=== PATIENT | female | born 1945 | race Caucasian/White ===

== ENCOUNTER 2016-07-26 17:48 | Emergency (ER) | payer MEDICARE, MEDICAID ==
[2016-07-26 18:16] LABS: BASOPHILS 0.1 % (0.0-2.0); EOSINOPHILS 0.2 % (0-7); HEMATOCRIT 35.7 % (36.0-48.0); HEMOGLOBIN 11.6 g/dL (12-16); IMMATURE GRANULOCYTES 0.2 % (0-5); LYMPHOCYTES 12.6 % (15-50); MCH 29.1 pg (26.0-34.0); MCHC 32.5 g/dL (31.0-37.0); MCV 89.7 fL (80.0-100.0); MONOCYTES 7.3 % (2-11); NEUTROPHILS 79.6 % (40-80); PLATELET COUNT 177 10x3/uL (130-400); RBC 3.98 10x6/uL (4.00-5.40); RDW 12.7 % (11.5-14.5); WBC 8.9 10x3/uL (4.8-10.8)
[2016-07-26 18:39] LABS: ALBUMIN 3.8 g/dL (3.4-5.0); ALKALINE PHOSPHATASE 83 U/L (46-116); ALT (SGPT) 19 U/L (10-68); BILIRUBIN - TOTAL 0.38 mg/dL (0.2-1.3); CALC OSMOLALITY 279 mosm/kg (275-300); CARBON DIOXIDE 32.1 mmol/L (21.0-32.0); CHLORIDE - SERUM 101 mmol/L (98-107); CREATININE - SERUM 0.9 mg/dL (0.6-1.3); GLUCOSE 108 mg/dL (74-106); PROTEIN - SERUM 7.4 g/dL (6.4-8.2); SODIUM 139 mmol/L (136-145); UREA NITROGEN 16 mg/dL (7-18); eGFR NON AFRICAN AMERICAN 65 mL/min (90-120)
[2016-07-26 18:59] LABS: CKMB 0.5 U/L (0.0-3.6); CREATINE KINASE 58 UL (21-215); TROPONIN-I < 0.017 ng/mL (0.000-0.060)
== END 2016-07-26 19:44 | disposition home or self-care (01) ==
LOC: D.ER 17:48
PROVIDERS: Family Medicine
DX: R07.81 Pleurodynia (principal); R05 Cough; I10 Essential (primary) hypertension

== ENCOUNTER 2018-12-20 07:41 | Inpatient (IN) | payer MEDICARE ==
[~2018-12-20] VITALS: Ht 165.1 cm; Wt 57.2 kg
[2018-12-23] MEDS ORDERED: HYDROCODON-ACE1 EAC7 PO (16:21)
[2018-12-23] MEDS ORDERED: COZAAR25 MG PO (16:21)
[2018-12-23] MEDS ORDERED: NEXIUM40 MG PO (16:22)
[2018-12-23] MEDS ORDERED: CELEXA40 MG PO (16:23)
[2018-12-23] MEDS ORDERED: XANAX0.5 MG PO (16:23)
[2018-12-23] MEDS ORDERED: VITAMIN D2000 UNIT PO (16:24)
[2018-12-23] MEDS ORDERED: DEPAKOTE500 MG PO (16:24)
[2018-12-23] MEDS ORDERED: BAYER CHEWABLE81 MG PO (16:24)
[2018-12-23] MEDS ORDERED: TRAZODONE HCL150 MG PO (16:25)
[2018-12-24] VITALS (11 sets, daily range): BP systolic 114–138; BP diastolic 59–73; BMI 20.8; BMI 21.0
[2018-12-24 07:49] LABS: APTT 28.9 SECONDS (22.8-39.4); INR 1.06 (0.85-1.17); PROTIME 13.3 SECONDS (11.6-15.0)
[2018-12-24 08:29] LABS: BASOPHILS 0.6 % (0-2); EOSINOPHILS 3.6 % (0-7); HEMATOCRIT 39.7 % (36.0-48.0); HEMOGLOBIN 13.2 g/dL (12-16); LYMPHOCYTES 37.5 % (15-50); MCH 28.9 pg (26.0-34.0); MCHC 33.2 g/dL (31.0-37.0); MCV 86.9 fL (80.0-100.0); MEAN PLATELET VOLUME 10.7 fL (7.4-10.4); MONOCYTES 13.8 % (2-11); NEUTROPHILS 44.5 % (40-80); PLATELET COUNT 182 10x3/uL (130-400); RBC 4.57 10x6/uL (4.00-5.40); WBC 3.6 10x3/uL (4.8-10.8)
--- NOTE | 2018-12-24 13:22 | NUR ---
EPIDURAL DROPPED FROM 8 TO RATE IF 6 @1320
--- NOTE | 2018-12-24 18:45 | NUR ---
PATIENT IN BED WITH IV INTACT. EPIDURAL INTACT ALSO. NEURO CHECKS WITHIN NORMAL LIMITS. VS STABLE. PATIENT STATES NO PAIN. FAMILY AT BEDSIDE. CALL LIGHT WITHIN REACH. BSCD ON AND WORKING.
--- NOTE | 2018-12-24 19:00 | NUR ---
ASSESSMENT PER FLOW SHEET. PT IS WITHOUT DISTRESS. PAIN CONTROLLED WITH EPIDURAL. LAP SITES X3 CLEAN AND DRY. LAP XI RMQ OF ABD WITH MINIMAL BLOODY DRAINAGE. SATS 95-96% VIA CONT PULSE OX.FALL PREVENTION INITIATED WITH MIKE MAT. HOB 20 DEGREES
[2018-12-25 03:48] VITALS: BP 116/74
--- NOTE | 2018-12-25 06:05 | NUR ---
HAS SLEPT SOME TONIGHT. COMPLAINS OF MINIMAL PAIN. PT IS WITHOUT CHANGE FROM INITIAL SHIFT ASSESSMENT. CONT PLAN OF CARE
[2018-12-25 06:49] VITALS: BP 108/62
[2018-12-25 07:19] LABS: BASOPHILS 0.2 % (0-2); EOSINOPHILS 0 % (0-7); HEMATOCRIT 32.3 % (36.0-48.0); HEMOGLOBIN 10.6 g/dL (12-16); IMMATURE GRANULOCYTES 0.2 % (0-5); LYMPHOCYTES 22.4 % (15-50); MCH 28.6 pg (26.0-34.0); MCHC 32.8 g/dL (31.0-37.0); MCV 87.3 fL (80.0-100.0); MEAN PLATELET VOLUME 10.5 fL (7.4-10.4); NEUTROPHILS 68.2 % (40-80); PLATELET COUNT 150 10x3/uL (130-400); RDW 14.2 % (11.5-14.5)
[2018-12-25 07:21] LABS: WBC 4.7 10x3/uL (4.8-10.8)
--- NOTE | 2018-12-25 07:33 | NUR ---
PT RESTING IN BED. PULSE OX 97%. DENIES PAIN. NO S/S OF ACUTE DISTRESS. CL IN PLACE.
[2018-12-25 07:43] LABS: ALBUMIN 2.6 g/dL (3.4-5.0); ANION GAP 11.1 mmol/L (8-16); BILIRUBIN - TOTAL 0.45 mg/dL (0.2-1.3); CALCIUM 8.3 mg/dL (8.5-10.1); CARBON DIOXIDE 27.6 mmol/L (21.0-32.0); CREATININE - SERUM 0.8 mg/dL (0.6-1.3); MAGNESIUM - SERUM 1.7 mg/dL (1.8-2.4); PHOSPHOROUS 3.2 mg/dL (2.5-4.9); POTASSIUM - SERUM 3.7 mmol/L (3.5-5.1); PROTEIN - SERUM 5.6 g/dL (6.4-8.2)
[2018-12-25 10:17] VITALS: BP 110/63
[2018-12-25 13:11] VITALS: BP 113/61
[2018-12-25 13:29] VITALS: BMI 20.9
--- NOTE | 2018-12-25 14:53 | NUR ---
WOUND CARE CONSULT: S/P RIGHT COLECTOMY 12/24/18. LAP SITES NOTED NO WOUND ISSUES
--- NOTE | 2018-12-25 15:20 | OP ---
PATIENT NAME: YENI CANALES MEDICAL RECORD: [id number] :45 LOCATION:D.MS [id number] ADMISSION DATE:12/24/18 SURGEON: PAU PALENCIA MD DATE OF OPERATION: 12/24/2018 PREOPERATIVE DIAGNOSIS: Cecal cancer. POSTOPERATIVE DIAGNOSIS: Cecal cancer. PROCEDURE: Hand-assisted laparoscopic surgery -- right hemicolectomy. SURGEON: Pau Palencia MD QUEBRACHO TANNER: None. BLOOD LOSS: 100 cc. DRAINS: None. The risks, possible complications and alternatives to the procedure were explained to the patient. She elects to proceed. The discussion specifically included, but was not limited to, bleeding requiring an emergency reoperation, infection, intestinal injury, ureteral injury. DESCRIPTION OF PROCEDURE: An epidural catheter was inserted by the anesthesia staff. The patient was then conveyed to the operating room. General anesthesia was induced by the anesthesia staff. The abdomen was sterilely prepped and draped. A small skin shelia was accomplished in the left upper quadrant. Veress needle was inserted through the skin shelia into the peritoneal cavity. CO2 insufflation was begun. Once a sufficient pneumoperitoneum had been achieved, a 5-mm trocar was inserted. Under direct internal vision utilizing a television camera, I inspected the abdomen. I identified no adhesions. A 5-mm trocar was inserted through an incision in the umbilicus. A 5-mm trocar was inserted through an incision in the suprapubic area. During insertion of the Veress needle and all trocars, there appeared to have been no injury to the bowels, any intraperitoneal or retroperitoneal structures. Utilizing the laparoscopic EnSeal device, I grasped the right colon, moved it medially and took down the white line of Toldt. I then folded the colon medially. I took down the retroperitoneal attachments to the hepatic flexure. I then chose a point for my hand port, which was assisted between the right costal margin and the anterior superior iliac spine. A transverse incision was accomplished here. Sharp dissection was carried out through the skin and subcutaneous tissues. I incised the external oblique muscle along the direction of its fibers and spread the muscle. I then spread the internal oblique and transverse abdominis muscles. I entered the peritoneal cavity sharply. An Cole retractor was placed. The Gelport was attached to the Cole retractor. Through the Gelport, I did some additional hand manipulation and mobilization of the right colon while sweeping down the inferior vena cava and the duodenum, which were retracted and undamaged during the operation. I removed the Gelport top. I then pushed down the ureter with a sponge stick. I was able to then exteriorize the right colon and hepatic flexure. I chose the proximal extent of my resection to be just upstream from the fold of Treves. A window was created in the mesentery of the small bowel. I stapled across the ileum with a MICHAEL 75 stapler. I chose the distal extent of my resection to be just proximal to the OPERATIVE REPORT [id number] YENI CANALES middle colic artery. I stapled across the large bowel here with a MICHAEL-75 stapler. The interpose mesentery was taken down with the Super Jaw EnSeal device. I then opened the specimen on the back table and I identified the malignancy within the cecum. I changed gowns and gloves. I then came back to the operative field and placed the ileum and transverse colon into apposition side by side with the antimesenteric borders sutured together with 3-0 Vicryl sutures. A small enterotomy and small colotomy were accomplished. Anvils of the MICHAEL-75 stapler were advanced. I then fired. The resulting enterocolonic defect was then closed with a single firing of the TA-60 stapler. The mesenteric rent was closed with a running #1 Vicryl. I then returned the anastomosis to the peritoneal cavity after checking and the anastomosis was patent to 3 fingers. I noted no damage to the small bowel. The small bowel was not twisted on its mesentery. I irrigated in the right upper quadrant and aspirated. There was no bleeding at low pressure of 8. The peritoneum, transverse abdominis muscle, and internal oblique muscle were all closed with a running #1 Vicryl. The external oblique muscle was closed with a running #1 Vicryl. The adipose tissue was closed with 3-0 Vicryl sutures. Subcutaneous tissues were closed with interrupted 3-0 Vicryls. The skin was closed with a running intracuticular 4-0 Vicryl. At the trocar sites, the umbilicus was closed with interrupted 4-0 Vicryl Rapide sutures. The other 2 trocar sites were closed with interrupted intracuticular 3-0 Vicryls. Benzoin and Steri-Strips were applied. The patient was then extubated and conveyed to the post-anesthesia care unit where she was in stable condition. TRANSINT:[id number] Voice Confirmation ID: [id number] DOCUMENT ID: [id number] PAU PALENCIA MD at 1520 CC: [id number] DICTATION DATE: 12/25/18 1214 HOCKEY SCOUT: 12/25/18 1332 ADM IN [facility] [id number] [place] [address]
[2018-12-25 16:24] VITALS: BP 115/68
--- NOTE | 2018-12-25 18:42 | NUR ---
PT RESTING IN BED. NO S/S OF ACUTE DISTRESS. SON AT BEDSIDE. CL IN PLACE.
--- NOTE | 2018-12-25 19:00 | NUR ---
ASSESSMENT PER FLOW SHEET. PT IS WITHOUT DISTRESS. PAIN CONTROLLED WITH EPIDURAL.SATS 100% ON 2 LITERS PER NASAL CANULA.FALL PREVENTION IN PLACE.CALL LIGHT IN REACH
[2018-12-25 21:49] VITALS: BP 119/69
--- NOTE | 2018-12-25 23:16 | NUR ---
PT TEMP GOT UP TO 101.0.INCENTIVE SPIROMETRY TO BEDSIDE WITH INSTRUCTION. RETURNED DEMONSTRATION WITH GOOD EFFORT.URINE TO LAB ORDERED FOR UA.MONITOR FOR NEEDS. TEMP NOW 100.6. MONITOR
[2018-12-25 23:26] LABS: APPEARANCE CLEAR (CLEAR); BILIRUBIN NEGATIVE (NEGATIVE); COLOR YELLOW (YELLOW); GLUCOSE NEGATIVE (NEGATIVE); KETONE SMALL mg/dL (NEGATIVE); NITRITE NEGATIVE (NEGATIVE); PROTEIN NEGATIVE (NEGATIVE); SPECIFIC GRAVITY 1.015 (1.005-1.020); UROBILINOGEN NORMAL (NORMAL)
[2018-12-25 23:27] LABS: BACTERIA NONE SEEN /hpf (NONE SEEN); EPITHELIAL CELLS 0-5 /hpf (0-5); WHITE CELLS - URINE 0-5 /hpf (0-5)
--- NOTE | 2018-12-26 00:55 | NUR ---
AWAKENS INT. FAMILY AT BEDSIDE. MONITOR FOR NEEDS
--- NOTE | 2018-12-26 02:48 | NUR ---
AWAKE MOST OF NIGHT. PT IS WITHOUT PAIN,BUT AWAKENS VERY EASILY. MONITOR FOR NEEDS
[2018-12-26 02:49] VITALS: BP 118/64
[2018-12-26 04:46] LABS: BASOPHILS 0.3 % (0-2); EOSINOPHILS 0.8 % (0-7); HEMATOCRIT 32.3 % (36.0-48.0); HEMOGLOBIN 10.5 g/dL (12-16); IMMATURE GRANULOCYTES 0.1 % (0-5); LYMPHOCYTES 14.3 % (15-50); MCH 28.6 pg (26.0-34.0); MCHC 32.5 g/dL (31.0-37.0); MEAN PLATELET VOLUME 10.2 fL (7.4-10.4); MONOCYTES 8.6 % (2-11); NEUTROPHILS 75.9 % (40-80); PLATELET COUNT 144 10x3/uL (130-400); RBC 3.67 10x6/uL (4.00-5.40)
[2018-12-26 04:58] LABS: WBC 7.2 10x3/uL (4.8-10.8)
[2018-12-26 05:05] LABS: ANION GAP 11.9 mmol/L (8-16); CALCIUM 8.4 mg/dL (8.5-10.1); CARBON DIOXIDE 26.3 mmol/L (21.0-32.0); CREATININE - SERUM 0.8 mg/dL (0.6-1.3); MAGNESIUM - SERUM 1.6 mg/dL (1.8-2.4); POTASSIUM - SERUM 4.2 mmol/L (3.5-5.1)
[2018-12-26 06:29] VITALS: BP 114/63
--- NOTE | 2018-12-26 06:35 | NUR ---
PT IS WITHOUT DISTRESS,WITHOUT CHANGE FROM INITIAL SHIFT ASSESSMENT.CONT PLAN OF CARE
--- NOTE | 2018-12-26 07:54 | NUR ---
PT RESTING IN BED. ASSITED ON BEDPAN. PASSED GAS NO BM. NO S/S OF ACUTE DISTRESS. CL IN PLACE.
--- NOTE | 2018-12-26 09:56 | NUR ---
CALLED [facility] TO SEE IF PT COULD TAKE PO MEDS. "OK TO TAKE PO MEDS. CALL ANESTHESIA TO DC EPIDURAL." NO S/S OF ACUTE DISTRESS. CL IN PLACE.
[2018-12-26 10:26] VITALS: BP 114/69
--- NOTE | 2018-12-26 12:02 | MORECARE ---
CASE MANAGEMENT DISCHARGE SUMMARY PATIENT: YENI CANALES UNIT: [id number] ADM DATE: 12/24/18 AGE: 73 : 45 SEX: F ROOM/BED: D.2218 AUTHOR: MARISA ORNELAS PHYSICIAN: REFERRING PHYSICIAN: PAU PALENCIA MD DATE OF SERVICE: 12/26/18 Discharge Plan Patient Name: YENI CANALES Facility: [facility]:[place] : 1945 Planned Disposition: Home Anticipated Discharge Date: Discharge Date: Expected LOS: Initial Reviewer: [email or web address] Initial Review Date: 12/24/2018 Generated: 12/26/18 1:02 pm Comments DCP- Discharge Planning Updated by [email or web address]: Una Ashley on 12/26/18 10:[address] Patient Name: YENI CANALES Admission Status: Elective Accout number: [id number] Admission Date: 12-24-2018 : 1945 Admission Diagnosis: Attending: PAU PALENCIA Current LOS: 2 Anticipated DC Date: Planned Disposition: Home Primary Insurance: MEDICARE A & B Discharge Planning Comments: CM met with patient to complete initial dc planning assessment. CM educated patient on the CM role and verbal consent given by patient to complete assessment. Patient lives at home with her adult son where she is independent with her care. At discharge patient plans to return home and feels this is a safe discharge. She has a great family support. 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 CM discussed availability of home health, rehab services, and medical equipment. Patient denied known discharge needs at this time. CM will continue to follow and will assist as needed with dc plans/needs. Knuckle Strap Sewer: Una Ashley DCPIA - Discharge Planning Initial Assessment Updated by [email or web address]: Una Ashley on 12/26/18 11:56 am * Is the patient Alert and Oriented? Yes * How many steps to enter\exit or inside your home? * PCP GERALDINE * Pharmacy [facility] * Preadmission Environment Home with Family * ADLs Independent * Equipment None * List name and contact numbers for known caregivers / representatives who currently or will assist patient after discharge: ANEESH [phone] [facility] [phone] * Verbal permission to speak to the caregivers and representatives has been obtained from the patient. Yes * Community resources currently utilized None * Additional services required to return to the preadmission environment? No * Can the patient safely return to the preadmission environment? Yes * Has this patient been hospitalized within the prior 30 days at any hospital? No Patient Name: YENI CANALES Page 37837 at 1202 All edits/amendments must be made on the electronic document DICTATION DATE: 12/26/18 1202 CRIBBER: MARCUS 12/26/18 1202 RPT#: [id number] DC DATE: STATUS: ADM IN [facility] [address] [place] [address] END OF REPORT
[2018-12-26 12:43] VITALS: BP 103/57
[2018-12-26 18:35] VITALS: BP 119/64
--- NOTE | 2018-12-26 18:45 | NUR ---
PT RESTING IN BED. PAIN 5/10. NO S/S OF ACUTE DISTRESS. CL IN PLACE.
--- NOTE | 2018-12-26 19:00 | NUR ---
BEDSIDE REPORT RECEIVED AND CARE OF PT ASSUMED. PT LYING IN LOW STUART'S POSITION WITH EYES CLOSED. IV TO RIGHT HAND PATENT WITH NS INFUSING AT 100 ML/HR. CORONA CATHETER DRAINING TO GRAVITY WITH YELLOW URINE IN COLLECTION BAG. WILL MONITOR FOR NEEDS.
--- NOTE | 2018-12-26 19:37 | NUR ---
PT RESTING IN BED. NO S/ SOF ACUTE DISTRESS. CL IN PLACE.
--- NOTE | 2018-12-26 20:27 | NUR ---
HS MEDICATIONS GIVEN. WILL CONTINUE TO MONITOR FOR NEEDS.
[2018-12-26 20:42] VITALS: BP 109/59
--- NOTE | 2018-12-26 22:36 | NUR ---
GAVE NORCO 10 PO PER PRN ORDER, PER REQUEST FOR PAIN. TURNED PT TO LEFT SIDE PER TURN SCHEDULE.
[2018-12-27 00:39] VITALS: BP 103/65
[2018-12-27 04:40] VITALS: BP 97/57
[2018-12-27 06:16] LABS: BASOPHILS 0.4 % (0-2); EOSINOPHILS 2.7 % (0-7); HEMATOCRIT 30.4 % (36.0-48.0); IMMATURE GRANULOCYTES 0.2 % (0-5); LYMPHOCYTES 15.5 % (15-50); MCH 28.9 pg (26.0-34.0); MCHC 32.9 g/dL (31.0-37.0); MCV 87.9 fL (80.0-100.0); MEAN PLATELET VOLUME 9.8 fL (7.4-10.4); MONOCYTES 8.7 % (2-11); NEUTROPHILS 72.5 % (40-80); PLATELET COUNT 145 10x3/uL (130-400); RBC 3.46 10x6/uL (4.00-5.40); RDW 13.8 % (11.5-14.5); WBC 5.6 10x3/uL (4.8-10.8)
[2018-12-27 06:47] LABS: ANION GAP 15.7 mmol/L (8-16); CALCIUM 8.1 mg/dL (8.5-10.1); CARBON DIOXIDE 22.4 mmol/L (21.0-32.0); CREATININE - SERUM 0.9 mg/dL (0.6-1.3); POTASSIUM - SERUM 4.1 mmol/L (3.5-5.1)
[2018-12-27 08:14] VITALS: BP 103/68
--- NOTE | 2018-12-27 11:51 | NUR ---
BLOOD SUGAR CHECKED AND WAS 85 MG/DL. NO FURTHER NEEDS AT THIS TIME. CL IN REACH. WCTM
--- NOTE | 2018-12-27 13:03 | NUR ---
NUTRITION F/U PT REMAINS NPO. RECEIVING NS AT 50 CC/HR. PROCALAMINE AT 50 CC/HR PROVIDING ~ 294 KCAL, 36 GM PROTEIN PER DAY. WILL MONITOR DIET ADVANCEMENT, PO INTAKE. RD FOLLOWING
[2018-12-27 13:37] VITALS: BP 99/58
[2018-12-27 16:41] VITALS: BP 107/54
[2018-12-27 21:25] VITALS: BP 113/57
[2018-12-27 21:27] VITALS: Ht 165.1 cm; Wt 57.2 kg
[2018-12-28 01:24] VITALS: BP 98/52
[2018-12-28 05:44] VITALS: BP 120/66
[2018-12-28 06:36] LABS: BASOPHILS 0.2 % (0-2); EOSINOPHILS 6.7 % (0-7); HEMATOCRIT 28.9 % (36.0-48.0); HEMOGLOBIN 9.6 g/dL (12-16); LYMPHOCYTES 24.3 % (15-50); MCH 28.8 pg (26.0-34.0); MCHC 33.2 g/dL (31.0-37.0); MCV 86.8 fL (80.0-100.0); MONOCYTES 10.2 % (2-11); NEUTROPHILS 58.6 % (40-80); PLATELET COUNT 152 10x3/uL (130-400); RBC 3.33 10x6/uL (4.00-5.40); WBC 4.2 10x3/uL (4.8-10.8)
[2018-12-28 06:55] LABS: CALC OSMOLALITY 277 mosm/kg (275-300); CALCIUM 8.1 mg/dL (8.5-10.1); CARBON DIOXIDE 26.4 mmol/L (21.0-32.0); CHLORIDE - SERUM 106 mmol/L (98-107); CREATININE - SERUM 0.7 mg/dL (0.6-1.3); GLUCOSE 88 mg/dL (74-106); POTASSIUM - SERUM 3.6 mmol/L (3.5-5.1); SODIUM 139 mmol/L (136-145); UREA NITROGEN 15 mg/dL (7-18); eGFR NON AFRICAN AMERICAN 87 mL/min (90-120)
[2018-12-28 09:04] VITALS: BP 124/64
--- NOTE | 2018-12-28 10:12 | NUR ---
PATIENT STATES SHE IS PASSING GAS. TOLERATED CLEAR LIQUIDS WITH NO N/V. CORONA REMOVED AT THIS TIME. WILL CONTINUE TO MONITOR. CALL LIGHT WITHIN REACH.
[2018-12-28 12:42] VITALS: BP 130/63
--- NOTE | 2018-12-28 14:16 | NUR ---
REHAB PRESCREENING Rehab referral received and chart reviewed. Ms. Rojas is currently on a clear liquid diet. She will need to be able to tolerate an advanced diet in order to participate in the required 3 hours of therapy. Rehab will continue to follow this patient for admission criteria. Thank you for this referral! Klaudia Morin, HISTOLOGIST TECHNOLOGIST Rehab PD
[2018-12-28 16:22] VITALS: BP 138/70
[2018-12-28 19:26] VITALS: BP 135/68
--- NOTE | 2018-12-28 19:52 | NUR ---
PATIENT HAS VOIDED WITH NO PROBLEMS SINCE CORONA REMOVAL AND IS NOW HAVING MULTIPLE LOOSE BMS. GOT UP AND AMBULATED WITH PT WITH NO PROBLEMS. IS ABLE TO GET UP AND GO TO BR WITH ASSIST. BSCDS OFF AT THIS TIME DUE TO PATIENTS FREQUENT BR VISITS. NO COMPLAINTS OR SIGNS OF DISTRESS AT THIS TIME. BED ALARM ON. CALL LIGHT WITHIN REACH.
[2018-12-29 00:18] VITALS: BP 111/63
[2018-12-29 05:01] VITALS: BP 131/70
[2018-12-29 06:40] LABS: BASOPHILS 0.3 % (0-2); EOSINOPHILS 3.3 % (0-7); HEMATOCRIT 30.1 % (36.0-48.0); HEMOGLOBIN 10.2 g/dL (12-16); IMMATURE GRANULOCYTES 0.3 % (0-5); LYMPHOCYTES 24.1 % (15-50); MCHC 33.9 g/dL (31.0-37.0); MCV 85.5 fL (80.0-100.0); MEAN PLATELET VOLUME 9.9 fL (7.4-10.4); MONOCYTES 11.5 % (2-11); NEUTROPHILS 60.5 % (40-80); PLATELET COUNT 160 10x3/uL (130-400); RBC 3.52 10x6/uL (4.00-5.40); WBC 3.7 10x3/uL (4.8-10.8)
[2018-12-29 06:59] LABS: CALC OSMOLALITY 281 mosm/kg (275-300); CALCIUM 8.3 mg/dL (8.5-10.1); CARBON DIOXIDE 28.2 mmol/L (21.0-32.0); CHLORIDE - SERUM 108 mmol/L (98-107); CREATININE - SERUM 0.7 mg/dL (0.6-1.3); GLUCOSE 90 mg/dL (74-106); POTASSIUM - SERUM 3.3 mmol/L (3.5-5.1); SODIUM 142 mmol/L (136-145); eGFR NON AFRICAN AMERICAN 87 mL/min (90-120)
[2018-12-29 07:02] LABS: UREA NITROGEN 10 mg/dL (7-18)
[2018-12-29 08:20] VITALS: BP 124/82
[2018-12-29 13:25] VITALS: BP 132/72
--- NOTE | 2018-12-29 15:10 | NUR ---
PATIENT IV REMOVED DUE TO PAIN. PATIENT DOES NOT WANT ANOTHER IV AT THIS TIME BC SHE MAY BE DC'D TOMORROW. PEPCID CHANGED TO PO AT THIS TIME. CALL LIGHT WITHIN REACH.
--- NOTE | 2018-12-29 15:30 | NUR ---
SPOKE WITH JUNIOR ASTORGA ABOUT PATIENT NOT WANTING NEW IV. NEW ORDERS RECIEVED AND CARRIED OUT.
[2018-12-29 16:39] VITALS: BP 114/61
--- NOTE | 2018-12-29 18:45 | NUR ---
PATIENT IN BED WITH EYES CLOSED RESTING QUIETLY. FAMILY AT BEDSIDE. CALL LIGHT WITHIN REACH/
[2018-12-29 20:00] VITALS: BP 125/70
[2018-12-30 06:35] LABS: BASOPHILS 0.3 % (0-2); EOSINOPHILS 4.8 % (0-7); HEMATOCRIT 31.9 % (36.0-48.0); HEMOGLOBIN 10.7 g/dL (12-16); IMMATURE GRANULOCYTES 0.3 % (0-5); LYMPHOCYTES 28.6 % (15-50); MCH 28.7 pg (26.0-34.0); MCHC 33.5 g/dL (31.0-37.0); MCV 85.5 fL (80.0-100.0); MEAN PLATELET VOLUME 10.2 fL (7.4-10.4); MONOCYTES 15.7 % (2-11); NEUTROPHILS 50.3 % (40-80); PLATELET COUNT 190 10x3/uL (130-400); RBC 3.73 10x6/uL (4.00-5.40); RDW 14.1 % (11.5-14.5); WBC 3.3 10x3/uL (4.8-10.8)
[2018-12-30 06:59] LABS: CALC OSMOLALITY 285 mosm/kg (275-300); CALCIUM 8.6 mg/dL (8.5-10.1); CARBON DIOXIDE 29.4 mmol/L (21.0-32.0); CHLORIDE - SERUM 109 mmol/L (98-107); CREATININE - SERUM 0.7 mg/dL (0.6-1.3); GLUCOSE 86 mg/dL (74-106); POTASSIUM - SERUM 3.3 mmol/L (3.5-5.1); SODIUM 145 mmol/L (136-145); eGFR NON AFRICAN AMERICAN 87 mL/min (90-120)
[2018-12-30 07:03] LABS: UREA NITROGEN 6 mg/dL (7-18)
[2018-12-30 08:49] VITALS: BP 140/77
[2018-12-30 12:44] VITALS: BP 135/77
--- NOTE | 2018-12-30 12:53 | MORECARE ---
CASE MANAGEMENT DISCHARGE SUMMARY PATIENT: YENI CANALES UNIT: [id number] ADM DATE: 12/24/18 AGE: 73 : 45 SEX: F ROOM/BED: D.2218 AUTHOR: MARISA ORNELAS PHYSICIAN: REFERRING PHYSICIAN: PAU PALENCIA MD DATE OF SERVICE: 12/30/18 Discharge Plan Patient Name: YENI CANALES Facility: [facility]:[place] : 1945 Planned Disposition: Home Anticipated Discharge Date: Discharge Date: Expected LOS: Initial Reviewer: [email or web address] Initial Review Date: 12/24/2018 Generated: 12/30/18 1:52 pm Comments DCP- Discharge Planning Updated by [email or web address]: Una Ashley on 12/30/18 11:[address] PATIENT WILL BE DISCHARGING HOME TODAY, IMM SERVED AND EXPLAINED. PATIENT DENIES ANY NEEDS AT THIS TIME DCP- Discharge Planning Updated by [email or web address]: Una Ashley on 12/26/18 10:[address] Patient Name: YENI CANALES Admission Status: Elective Accout number: [id number] Admission Date: 12-24-2018 : 1945 Admission Diagnosis: Attending: PAU PALENCIA Current LOS: 2 Anticipated DC Date: Planned Disposition: Home Primary Insurance: MEDICARE A & B Discharge Planning Comments: CM met with patient to complete initial dc planning assessment. CM educated patient on the CM role and verbal consent given by patient to complete assessment. Patient lives at home with her adult son where she is independent with her care. At discharge patient plans to return home and feels this is a safe discharge. She has a great family support. 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 CM discussed availability of home health, rehab services, and medical equipment. Patient denied known discharge needs at this time. CM will continue to follow and will assist as needed with dc plans/needs. Black Top Roller: Una Ashley DCPIA - Discharge Planning Initial Assessment Updated by [email or web address]: Una Ashley on 12/26/18 11:56 am * Is the patient Alert and Oriented? Yes * How many steps to enter\exit or inside your home? * PCP GERALDINE * Pharmacy [facility] * Preadmission Environment Home with Family * ADLs Independent * Equipment None * List name and contact numbers for known caregivers / representatives who currently or will assist patient after discharge: ANEESH [phone] JOSE [phone] * Verbal permission to speak to the caregivers and representatives has been obtained from the patient. Yes * Community resources currently utilized None * Additional services required to return to the preadmission environment? No * Can the patient safely return to the preadmission environment? Yes * Has this patient been hospitalized within the prior 30 days at any hospital? No Coverage Notice Reviewer: [email or web address] Karishma Ashley Notice Issued Date-Time: 12/30/2018 12:35 Notice Type: IM Discharge Notice Notice Delivered To: Patient Relationship to Patient: Screening Nurse Name: Delivery Method: HAND - Hand Delivered Terra Days: Prior Verbal Notification: Recipient Understood Notice: Yes Recipient Signature: Yes Med Rec Note Co-signed by Attending: Coverage Notice Comment: Last DP export: 12/26/18 11:02 a Patient Name: YENI CANALES Page [phone] at 1253 All edits/amendments must be made on the electronic document DICTATION DATE: 12/30/18 1252 EHS TEACHER: MARCUS 12/30/18 1252 RPT#: [id number] DC DATE: STATUS: ADM IN [facility] [address] [place] [address] END OF REPORT
[2018-12-30] MEDS ORDERED: COLACE100 MG PO (12:54)
--- NOTE | 2018-12-30 15:36 | NUR ---
DISCHARGE INSTRUCTIONS,STATES UNDERSTANDING. AT BEDSIDE. PT LEFT UNIT VIA WHEELCHAIR FOR TRANSPORT HOME
--- NOTE | 2019-01-01 09:52 | MORECARE ---
CASE MANAGEMENT DISCHARGE SUMMARY PATIENT: YENI CANALES UNIT: [id number] ADM DATE: 12/24/18 AGE: 73 : 45 SEX: F ROOM/BED: D.2218 AUTHOR: MARISA ORNELAS PHYSICIAN: REFERRING PHYSICIAN: PAU PALENCIA MD DATE OF SERVICE: 01/01/19 Discharge Plan Patient Name: YENI CANALES Facility: [facility]:[place] : 1945 Planned Disposition: Home Anticipated Discharge Date: Discharge Date: 12/30/2018 Expected LOS: 0 Initial Reviewer: [email or web address] Initial Review Date: 12/24/2018 Generated: 01/01/19 10:51 am Comments DCP- Discharge Planning Updated by [email or web address]: Una Ashley on 12/30/18 11:[address] PATIENT WILL BE DISCHARGING HOME TODAY, IMM SERVED AND EXPLAINED. PATIENT DENIES ANY NEEDS AT THIS TIME DCP- Discharge Planning Updated by [id number]: Una Ashley on 12/26/18 10:[address] Patient Name: YENI CANALES Admission Status: Elective Accout number: [id number] Admission Date: 12-24-2018 : 1945 Admission Diagnosis: Attending: PAU PALENCIA Current LOS: 2 Anticipated DC Date: Planned Disposition: Home Primary Insurance: MEDICARE A & B Discharge Planning Comments: CM met with patient to complete initial dc planning assessment. CM educated patient on the CM role and verbal consent given by patient to complete assessment. Patient lives at home with her adult son where she is independent with her care. At discharge patient plans to return home and feels this is a safe discharge. She has a great family support. 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 CM discussed availability of home health, rehab services, and medical equipment. Patient denied known discharge needs at this time. CM will continue to follow and will assist as needed with dc plans/needs. Trust Officer: Una Ashley DCPIA - Discharge Planning Initial Assessment Updated by [email or web address]: Una Ashley on 12/26/18 11:56 am * Is the patient Alert and Oriented? Yes * How many steps to enter\exit or inside your home? * PCP GERALDINE * Pharmacy [facility] * Preadmission Environment Home with Family * ADLs Independent * Equipment None * List name and contact numbers for known caregivers / representatives who currently or will assist patient after discharge: ANEESH [phone] JOSE [phone] * Verbal permission to speak to the caregivers and representatives has been obtained from the patient. Yes * Community resources currently utilized None * Additional services required to return to the preadmission environment? No * Can the patient safely return to the preadmission environment? Yes * Has this patient been hospitalized within the prior 30 days at any hospital? No Coverage Notice Reviewer: [email or web address] Karishma Ashley Notice Issued Date-Time: 12/30/2018 12:35 Notice Type: IM Discharge Notice Notice Delivered To: Patient Relationship to Patient: Operations Accountant Name: Delivery Method: HAND - Hand Delivered Terra Days: Prior Verbal Notification: Recipient Understood Notice: Yes Recipient Signature: Yes Med Rec Note Co-signed by Attending: Coverage Notice Comment: Last DP export: 12/30/18 11:52 a Patient Name: YENI CANALES Page 28738 at 0952 All edits/amendments must be made on the electronic document DICTATION DATE: 01/01/19950 VULCAN CREWMEMBER: MARCUS 01/01/19950 RPT#: [id number] DC DATE:12/30/18 STATUS: DIS IN [facility] [address] [place] [address] END OF REPORT
--- NOTE | 2019-01-02 11:25 | DS ---
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 Proximal and distal ends of the intestinal surgical margin of resection revealed no diagnostic abnormality. Seven lymph nodes revealed no diagnostic abnormality. A gross examination of the liver revealed no liver lesions. PRINCIPAL PROCEDURE: Hand-assisted laparoscopic surgery -- right hemicolectomy. OTHER DIAGNOSES: Mild anemia due to surgery and iron deficiency. We had very little blood loss during surgery. Gastroesophageal reflux disease. HOSPITAL COURSE: The patient underwent the above operative procedure. The patient's pain was controlled postoperatively with an epidural pain pump. The epidural pump was removed. Bowel function returned. Her diet was advanced. She was dismissed home. There was very little change in her hematocrit from the preprocedural hematocrit and the post-procedural hematocrit, so I really do not think that the low hematocrit was due to acute blood loss. The patient is going to be following up with her primary care physician, Dr. Estrada as well as with an oncologist. TRANSINT:[id number] Voice Confirmation ID: [id number] DOCUMENT ID: [id number] 01/02/2019 Edited for service order taker error, dmm. PAU PALENCIA MD at 1125 CC: SIA ORDOÑEZ [id number] DICTATION DATE: 01/01/19925 SPINNING LATHE OPERATOR AUTOMATIC: 01/01/19 0940 DIS IN 12/30/[address] [address]
== END 2018-12-30 15:37 | disposition home or self-care (01) | DRG 330 ==
LOC: D.MS 12-24 07:16 → D.SDCHOLD 12-24 07:16 → D.MS 12-24 13:11
PROVIDERS: Anesthesiology; Internal Medicine Nephrology; ADMIT Surgery; ATTEND Surgery
PROC: 0DTF0ZZ Resection of Right Large Intestine, Open Approach (ICD-10-PCS; principal; 2018-12-24 10:00)
DX: C18.9 Malignant neoplasm of colon, unspecified (principal); D62 Acute posthemorrhagic anemia; I38 Endocarditis, valve unspecified; I10 Essential (primary) hypertension; E83.42 Hypomagnesemia; K21.9 Gastro-esophageal reflux disease without esophagitis